=== PATIENT | female | born 1955 | race Caucasian/White ===

== ENCOUNTER 2022-10-23 14:28 | Emergency (ER) | payer MEDICARE, SELFPAY ==
[2022-10-23 14:43] VITALS: BP 149/83; PULSE 104; RESP 18; TEMP 37.6; O2SAT 97; BMI 37.0
--- NOTE | 2022-10-23 14:46 | ED_ITS ---
HPI - General Adult General Chief complaint: Nausea/Vomiting/Diarrhea Stated complaint: Vomiting/Diarrhea Time Seen by Provider: 10/23/22 17:05 Source: patient Mode of arrival: ambulatory Limitations: no limitations History of Present Illness HPI narrative: Patient went outside to each area restaurant had good amount of food, since last night having low-grade fever with nausea vomiting and diarrhea vomited about 4 or 5 times and diarrhea multiple times no other family member sick no urinary complaints no flank pain no significant abdominal pain no flank pain Related Data Previous Rx's Medication Instructions Recorded ciprofloxacin HCl 500 mg tablet 500 mg PO BID #14 tabs 10/23/22 (Cipro) loperamide 2 mg tablet (Imodium 2 mg PO Q6H PRN loose stool #14 10/23/22 A-D) tabs ondansetron 4 mg disintegrating 4 mg PO Q6-8H PRN nausea and 10/23/22 tablet vomiting #7 tabs Allergies Allergy/AdvReac Type Severity Reaction Status Date / Time egg Allergy Vomiting Verified 10/23/22 14:42 Penicillins Allergy Unknown Verified 10/23/22 14:42 seafood Allergy Vomiting Verified 10/23/22 14:42 Review of Systems Review of Systems: Yes all other systems are reviewed and are negative PMFSH Social History Social History Use of substances other than those prescribed or required for medical reasons: No Advance Directives: No Advance Directives Information Provided: No Physical Exam ED Vital Signs: Vital Signs - 24 hr 10/23/22 14:43 10/23/22 16:00 10/23/22 17:22 Temperature 99.6 F 98.9 F 98.9 F Pulse Rate 104 H 95 Respiratory Rate 18 16 Blood Pressure 149/83 H 153/75 H Pulse Oximetry 97 98 Oxygen Delivery Method Room Air Room Air 10/23/22 17:44 Temperature 97.9 F Pulse Rate 82 Respiratory Rate 16 Blood Pressure 129/81 Pulse Oximetry 98 Oxygen Delivery Method Room Air BMI result Body Mass Index 37.0 Appearance: Alert. Oriented X3. No acute distress. Eyes: PERRLA, No Nystagmus ENT: Pharynx normal. Oral Mucosa dry Neck: Normal inspection. Neck supple. CVS: Normal heart rate and rhythm. Pulses normal. Respiratory: No respiratory distress. Equal air entry bilateral, no wheezing/rales/rhonchi Abdomen: Soft and nontender. Bowel sounds are present, no mass palpable, no CVA tenderness Skin: Skin warm and dry. Normal skin color. Normal skin turgor. Extremities: No lower extremity edema. No calf tenderness Neuro: Oriented X 3. No motor deficit. Course Course Course Narrative: RME: 67 yold female recently traveled from [place] presents to the ED for fever, abdominal pain, and vomitting. labs ordered Medications Administered Discontinued Medications Generic Name Dose Route Start Last Admin Trade Name Mariana PRN Reason Stop Dose Admin Levofloxacin 500 mg 10/23/22 17:19 10/23/22 17:24 Levofloxacin 500 Mg Tablet PO 10/23/22 17:20 500 mg ONCE ONE Administration Loperamide HCl 4 mg 10/23/22 17:19 10/23/22 17:24 Loperamide Hcl 2 Mg Capsule PO 10/23/22 17:20 4 mg ONCE ONE Administration Ondansetron HCl 4 mg 10/23/22 17:19 10/23/22 17:24 Ondansetron Odt 4 Mg Tab.Rapdis TRANSLINGU 10/23/22 17:20 4 mg ONCE ONE Administration Medical Decision Making Medical Decision Making [facility] Narrative: Patient feeling much better now taking p.o. fluids will discharge patient home likely gastroenteritis Lab Data [facility] Lab Attestation statement: I reviewed the patient's lab results. 10/23/22 16:30 10/23/22 16:30 Labs: Lab Results 10/23/22 10/23/22 10/23/22 Range/Units 15:00 15:00 16:21 WBC (4.8-10.8) X10*3/uL RBC (4.20-5.50) X10*6/uL Hgb (12.0-16.0) g/dl Hct (37.0-47.0) % MCV (80.0-98.0) fL MCH (27.0-33.0) pg MCHC (31.0-35.0) g/dl RDW (11.0-16.0) % Plt Count (160-400) X10*3/uL MPV (9.4-12.3) fL Immature Gran % (Auto) (0.0-0.4) % Neut % (Auto) (45-73) % Lymph % (Auto) (20-40) % [place] % (Auto) (2-11) % Eos % (Auto) (0-4) % Baso % (Auto) (0-2) % Lymph # (Auto) (1.2-4.9) X10*3/uL [place] # (Auto) (0.1-1.2) X10*3/uL Eos # (Auto) (0.0-0.4) X10*3/uL Baso # (Auto) (0.0-0.2) X10*3/uL Abs Immat Gran (auto) (0.00-0.03) X10*3/uL Absolute Neuts (auto) (2.0-8.3) x10*3/uL Absolute Nucleated RBC (0.0-0.012) X10*3/uL Nucleated RBC % (auto) (0.0-0.2) /100WBC Sodium (135-145) mmol/L Potassium (3.3-5.1) mmol/L Chloride (96-108) mmol/L Carbon Dioxide (22-29) mmol/L Anion Gap (12-20) BUN (9-16) mg/dL Creatinine (0.5-1.4) mg/dL Estim Creat Clear Calc Estimated GFR Random Glucose (60-115) mg/dL Calcium (8.4-10.2) mg/dL Total Bilirubin (0.0-1.0) mg/dL AST (5-31) U/L ALT (0-31) U/L Alkaline Phosphatase (39-117) U/L Total Protein (6.5-8.0) g/dL Albumin (3.5-5.0) g/dL Lipase (8-78) U/L Urine Color Yellow Urine Appearance Cloudy Urine pH 5.5 (5.0-9.0) Ur Specific [place] 1.020 (1.005-1.025) Urine Protein 100 (2+) H (Neg-Trace) mg/dL Urine Glucose (UA) Negative (Negative) mg/dL Urine Ketones Trace (Negative) mg/dL Urine Blood Negative (Negative) Urine Nitrite Negative (Negative) Ur Leukocyte Esterase Moderate (2+) H (Negative) Urine RBC 3-5 H (0-2) /HPF Urine WBC >50 H (0-5) /HPF Ur Squamous Epith Cells 6-10 (0-2) /HPF Urine Bacteria 3+ (None Seen) Hyaline Casts 3-5 (0-2) /LPF COVID-19 ([facility]UARDO) Negative (Negative) COVID-19 Clin Com See Note Influenza Type A (TRICIA) Negative (Negative) Influenza Type B (TRICIA) Negative (Negative) Influenza A & B Note See Note 10/23/22 10/23/22 Range/Units 16:30 16:30 WBC 7.5 (4.8-10.8) X10*3/uL RBC 5.68 H (4.20-5.50) X10*6/uL Hgb 15.9 (12.0-16.0) g/dl Hct 47.4 H (37.0-47.0) % MCV 83.5 (80.0-98.0) fL MCH 28.0 (27.0-33.0) pg MCHC 33.5 (31.0-35.0) g/dl RDW 14.5 (11.0-16.0) % Plt Count 182 (160-400) X10*3/uL MPV 11.0 (9.4-12.3) fL Immature Gran % (Auto) 0.3 (0.0-0.4) % Neut % (Auto) 85.2 H (45-73) % Lymph % (Auto) 7.2 L (20-40) % [place] % (Auto) 7.2 (2-11) % Eos % (Auto) 0.0 (0-4) % Baso % (Auto) 0.1 (0-2) % Lymph # (Auto) 0.5 L (1.2-4.9) X10*3/uL [place] # (Auto) 0.5 (0.1-1.2) X10*3/uL Eos # (Auto) 0.0 (0.0-0.4) X10*3/uL Baso # (Auto) 0.0 (0.0-0.2) X10*3/uL Abs Immat Gran (auto) 0.02 (0.00-0.03) X10*3/uL Absolute Neuts (auto) 6.3 (2.0-8.3) x10*3/uL Absolute Nucleated RBC 0.000 (0.0-0.012) X10*3/uL Nucleated RBC % (auto) 0.0 (0.0-0.2) /100WBC Sodium 142 (135-145) mmol/L Potassium 3.9 (3.3-5.1) mmol/L Chloride 103 (96-108) mmol/L Carbon Dioxide 26 (22-29) mmol/L Anion Gap 17 (12-20) BUN 12 (9-16) mg/dL Creatinine 0.90 (0.5-1.4) mg/dL Estim Creat Clear Calc 67.2 Estimated GFR > 60 Random Glucose 101 (60-115) mg/dL Calcium 9.7 (8.4-10.2) mg/dL Total Bilirubin 1.2 H (0.0-1.0) mg/dL AST 31 (5-31) U/L ALT 36 H (0-31) U/L Alkaline Phosphatase 149 H (39-117) U/L Total Protein 8.5 H (6.5-8.0) g/dL Albumin 5.2 H (3.5-5.0) g/dL Lipase 27 (8-78) U/L Urine Color Urine Appearance Urine pH (5.0-9.0) Ur Specific [place] (1.005-1.025) Urine Protein (Neg-Trace) mg/dL Urine Glucose (UA) (Negative) mg/dL Urine Ketones (Negative) mg/dL Urine Blood (Negative) Urine Nitrite (Negative) Ur Leukocyte Esterase (Negative) Urine RBC (0-2) /HPF Urine WBC (0-5) /HPF Ur Squamous Epith Cells (0-2) /HPF Urine Bacteria (None Seen) Hyaline Casts (0-2) /LPF COVID-19 ([facility]ARD[facility]) (Negative) COVID-19 Clin Com Influenza Type A (TRICIA) (Negative) Influenza Type B (TRICIA) (Negative) Influenza A & B Note Discharge Plan Discharge Clinical Impression: Gastroenteritis, Acute UTI Patient Disposition: Home, Self-Care Instructions: Urinary Tract Infection in Women (ED), Gastroenteritis (ED) Additional Instructions: Drink plenty of fluid Zofran for nausea/vomiting Imodium for severe diarrhea Antibiotic as advised for urinary tract infection Noemi mucho l?quido Zofran para n?useas/v?mitos Imodium para la diarrea severa Antibi?demario seg?n lo recomendado para la infecci?n del tracto urinario Prescriptions: New loperamide [Imodium A-D] 2 mg tablet 2 mg PO Q6H PRN (Reason: loose stool) Qty: 14 0RF ondansetron 4 mg tablet,disintegrating 4 mg PO Q6-8H PRN (Reason: nausea and vomiting) Qty: 7 0RF ciprofloxacin HCl [Cipro] 500 mg tablet 500 mg PO BID Qty: 14 0RF Interventions: ED Discharge Assessment Last Done: 10/23/22 19:36 Discharge Date/Time: 10/23/22 19:36 Print Language: Divehi
[2022-10-23 15:22] LABS: IDNOW Serial# 08D9AD1C; Influenza A Negative (Negative); Influenza B2 Negative (Negative)
[2022-10-23 15:23] LABS: COVID-19 Test Negative (Negative); IDNOW Serial# 55D5AD1C
[2022-10-23 16:00] VITALS: BP 153/75; PULSE 95; RESP 16; TEMP 37.2; O2SAT 98
--- NOTE | 2022-10-23 16:21 | MHC.EDTECH ---
THIS PCT ASSUMED CARE OF PT AT 1500 ,VITALS SIGN TAKEN ,URINE SAMPLE COLLECTED AND SENT TO LAB ,THIS PCT TRIED TO DRAW LABS ON PATIENT NO SUCCESS ,ANOTHER PCT IS TRYING .
[2022-10-23 16:33] LABS: MANUAL DIFF FLAG NO
[2022-10-23 16:35] LABS: Basophils Percent Auto 0.1 % (0-2); Hematocrit 47.4 % (37.0-47.0); Hemoglobin 15.9 g/dl (12.0-16.0); Imm Gran Abs Auto 0.02 X10*3/uL (0.00-0.03); Imm Gran Pct Auto 0.3 % (0.0-0.4); Lymphocytes Absolute Auto 0.5 X10*3/uL (1.2-4.9); Lymphocytes Percent Auto 7.2 % (20-40); Mean Corpuscular HGB Conc 33.5 g/dl (31.0-35.0); Mean Corpuscular Volume 83.5 fL (80.0-98.0); Monocytes Absolute Auto 0.5 X10*3/uL (0.1-1.2); Monocytes Percent Auto 7.2 % (2-11); Neutrophils Absolute Auto 6.3 x10*3/uL (2.0-8.3); Neutrophils Percent Auto 85.2 % (45-73); Platelet Count 182 X10*3/uL (160-400); Red Blood Count 5.68 X10*6/uL (4.20-5.50); Red Cell Distribution Width 14.5 % (11.0-16.0); White Blood Count 7.5 X10*3/uL (4.8-10.8)
[2022-10-23 16:40] LABS: Appearance Urine Cloudy; Color Urine Yellow; Glucose Urine UA Negative (Negative); Leukocyte Esterase Urine Moderate (2+) (Negative); Nitrite Urine Negative (Negative); PH 5.5 (5.0-9.0); UMIC TRIGGER UACC YES; Urine Blood Negative (Negative); Urine Ketones Trace mg/dL (Negative); Urine Protein 100 (2+) mg/dL (Neg-Trace)
[2022-10-23 16:45] LABS: Bacteria Urine 3+ (None Seen); UACC Culture Trigger YES; WBC Urine >50 /HPF (0-5)
[2022-10-23 17:00] LABS: Alanine Aminotransferase 36 U/L (0-31); Albumin Level 5.2 g/dL (3.5-5.0); Alkaline Phosphatase 149 U/L (39-117); Anion Gap 17 (12-20); Aspartate Amino Transferase 31 U/L (5-31); Bilirubin Total 1.2 mg/dL (0.0-1.0); Blood Urea Nitrogen 12 mg/dL (9-16); Calcium 9.7 mg/dL (8.4-10.2); Carbon Dioxide 26 mmol/L (22-29); Chloride 103 mmol/L (96-108); Creatinine Clr Calc Pharmacy 67.2; Estimated Glomerular Filt Rate > 60; Glucose Random 101 mg/dL (60-115); Lipase 27 U/L (8-78); Potassium 3.9 mmol/L (3.3-5.1); Sodium 142 mmol/L (135-145); Total Protein 8.5 g/dL (6.5-8.0)
[2022-10-23 17:22] VITALS: TEMP 37.2
[2022-10-23] MEDS: levoFLOXacin 500 MG TABLET PO (17:24)
[2022-10-23] MEDS: Ondansetron ODT 4 MG TAB.RAPDIS TRANSLINGU (17:24)
[2022-10-23] MEDS: Loperamide HCl 2 MG CAPSULE 4 MG PO (17:24)
[2022-10-23 17:44] VITALS: BP 129/81; PULSE 82; RESP 16; TEMP 36.6; O2SAT 98
== END 2022-10-23 19:36 | disposition home or self-care (01) ==
PROVIDERS: Physician Assistant; Emergency Provider Internal Medicine
DX: K52.9 Noninfective gastroenteritis and colitis, unspecified (principal); N39.0 Urinary tract infection, site not specified; Z20.822 Contact with and (suspected) exposure to COVID-19; Z20.828 Contact with and (suspected) exposure to other viral communicable diseases; Z79.899 Other long term (current) drug therapy
CPT/HCPCS: 80053; 81001; 83690; 85025; 87086; 87088; 87186; 87502; 87635; 96361; 96365; 96375; 99284